=== PATIENT | male | born 1935 | race Caucasian/White ===

== ENCOUNTER 2017-10-07 18:09 | Inpatient (IN) ==
[2017-10-07] MEDS ORDERED: SALINE FLUSH 10ml SYRINGE IVF PRN (18:38)
--- NOTE | 2017-10-07 18:40 | Emergency Department Report ---
General Adult HPI - General Chief complaint: Weakness Stated complaint: Fall-weakness Time Seen by Provider: 10/07/17 18:37 Source: patient Mode of arrival: EMS Limitations: no limitations - History of Present Illness HPI narrative: 2-year-old male presents to the emergency department with the chief complaint of subjective fever and generalized weakness. He noted onset of symptoms at home prior to arrival to the emergency department. Patient states that he was feeling weak so he sat down to avoid falling down and sat down on his buttocks. He denies striking his head, neck pain, or loss of consciousness. He denies any current pain or discomfort. He does use 3 L by nasal cannula at all times. No other complaints or associated symptoms. He was at home when his symptoms began. Symptoms have been persistent in nature since onset. - Related Data Home Medications Medication Instructions Recorded Confirmed Rosuvastatin [Crestor] 10 mg PO HS #0 11/13/09 10/07/17 Folic Acid 4 mcg PO DAILY #0 06/05/12 10/07/17 Niacin 500 mg PO DAILY #0 06/05/12 10/07/17 Amlodipine [Norvasc] 10 mg PO BID 06/28/17 10/07/17 Cholecalciferol (Vitamin D3) 1,000 unit PO DAILY 06/28/17 10/07/17 [Vitamin D3] Furosemide [Lasix 40 mg Tab] 40 mg PO DAILY 06/28/17 10/07/17 Levothyroxine Tab [Synthroid] 25 mcg PO ACB 06/28/17 10/07/17 Multivitamin [One Daily] 1 each PO DAILY 06/28/17 10/07/17 Potassium Chloride [K-DUR 20 mEq 20 meq PO HS 06/28/17 10/07/17 Tablet] Propafenone [Rythmol] 150 mg PO TID 06/28/17 10/07/17 Ubidecarenone/Vit E Acet [Co Q-10 1 each PO DAILY 06/28/17 10/07/17 100 mg Softgel] Vitamin B Complex [Balanced B-100] 1 each PO DAILY 06/28/17 10/07/17 Claritin (Loratadine) 10 mg tablet 10 mg PO DAILY 08/01/17 10/07/17 aspirin 81 mg tablet,delayed 81 mg PO DAILY tab 02/09/18 04/17/18 release magnesium 250 mg tablet 250 mg PO DAILY 08/01/17 10/07/17 omega 3,6,9 combination no.7 92 mg 80 mg PO DAILY tab 08/01/17 10/07/17 (43 mg-22 [id number]) chew tablet Albuterol Neb (0.5%) [Proventil 2.5 mg AEROSOL PRN PRN 08/11/17 10/07/17 Neb (0.5%)] Citalopram Hydrobromide [Celexa] 20 mg PO HS 08/11/17 10/07/17 DiltiaZEM CD [Cardizem CD 180 MG] 180 mg PO DAILY 08/11/17 10/07/17 LORazepam [Ativan] 1 tab PO HS 08/11/17 10/07/17 Allergies Allergy/AdvReac Type Severity Reaction Status Date / Time OLGA Inhibitors Allergy Severe SWELLING Verified 08/11/17 08:02 benazepril HCl Allergy Severe TONGUE Uncoded 08/11/17 08:02 SWELLS Review of Systems Constitutional: Reports: fever (subjective), weakness (generalized) Eyes: Denies: eye discharge, vision change ENT: Denies: ear pain, throat pain Cardiovascular: Denies: chest pain, palpitations Respiratory: Denies: cough, dyspnea Gastrointestinal: Denies: abdominal pain, nausea, vomiting, diarrhea Genitourinary: Denies: urgency, dysuria Musculoskeletal: Denies: back pain, arthralgia Integumentary: Denies: erythema, rash Neurological: Denies: headache, numbness, paresthesias Psychiatric: Denies: anxiety, depression Endocrine: Denies: polydipsia, polyuria Hematological/Lymphatic: Denies: easy bruising, lymphadenopathy Allergic/Immunologic: Denies: facial swelling, urticaria PFSH Patient Stated Medical History Cardiac Arrhythmia Yes: Afib,PLAVIX,LOVENOX Congestive Heart Failure Yes Coronary Artery Disease Yes Hypertension Yes Sleep Apnea Yes: uses cpap Clinic Medical History (Last Updated 08/05/17 @ 15:10 by Lyndon Mix MD) Hypothyroidism (Chronic Medical) Non-Hodgkin lymphoma (Chronic Medical ~2011) Oncologist: Dr. 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 Blackwell at [facility] in [place], [place]. * Stent Placement x 2 - 04/[address] Blackwell at [facility] in [place], [place]. * Laparoscopic cholecystectomy - 11/13/[address] Art at [facility] in [place], [place]. * [address] Cardiac bypass - [address] Fabien Mena in [place], [place]. * Colonoscopy ~[address] Perry in [place], [place]. Family History: Family History (Last Updated 08/01/17 @ 13:16 by Dom Hurley) Father , at 76 Arthritis Heart attack Mother , at 92 Arthritis High blood pressure Brother Parkinsons disease - Social History Smoking status: Never smoker second hand exposure: No Substance use type: does not use Alcohol intake frequency: does not drink Household members: spouse Current occupational status: retired Does patient use chewing tobacco?: No Physical Exam - Limitations Limitations: no limitations - General General appearance: alert, in no apparent distress - Normal Exams: Head:: Normocephalic without trauma Eyes:: Pupils are PERRLA w/ EOMI, No scleral icterus, irritation, or foreign bodies noted ENMT:: No facial trauma, nasal exudates, pharyngeal erythema, or exudates are noted Dental: No fractured, loose, or missing teeth noted Neck:: Full range of motion, without adenopathy, JVD, bruits or thyromegaly Chest/Respirations:: Clear all green, with good airflow, and symmetry bilaterally Cardiovascular:: Regular rate and rhythm, without murmur or gallop, Pulses 2+ all extremities, capillary refill, <2 seconds all extremities Abdomen:: Bowel sounds positive, soft, non-tender, non-distended, no hepatosplenomegaly, masses or bruits noted Lymphatic:: No lymphadenopathy, or lymphedema noted Musculoskeletal:: No tenderness, or deformity noted, good range of motion, all extremities Integumentary:: No rashes, hives, or bruising noted, hair and nails, without abnormality Neurological:: Patient is alert, and oriented, cranial nerves, motor/sensory/ cerebellar, exams w/o gross deficits, to observation Psychiatric:: Patient exhibits, appropriate attention, emotion and affect Course Vital Signs Temperature 100.8 F H 10/07/17 18:12 Pulse Rate 98 10/07/17 18:12 Respiratory Rate 26 H 10/07/17 18:12 Blood Pressure 111/54 10/07/17 18:12 Pulse Oximetry 87 L 10/07/17 18:12 Temperature 100.8 F H 10/07/17 18:12 Pulse Rate 92 10/07/17 20:30 Respiratory Rate 26 H 10/07/17 18:12 Blood Pressure 131/63 10/07/17 20:30 Pulse Oximetry 94 10/07/17 20:30 Medical Decision Making - MDM Narrative Medical decision making narrative: Labs / imaging was discussed in detail with the patient and questions are answered. Patient is given 1 g of acetaminophen by mouth 1. He is given 1 g of cefepime intravenously after blood cultures were obtained. He is given 500 mL of normal saline intravenously at a slow rate. Patient is discussed with the hospitalist Dr. Álvarez who is in agreement with the current plan of management. Patient will be admitted to the service of the hospitalist in improved condition for further evaluation and treatment due to the fact that the patient is currently active on chemotherapy for lymphoma. I have no current source of infection for a sepsis diagnosis at this time. Cefepime 1 g was given intravenously at 2130 and sepsis was considered. He was never hypotensive in the emergency department and his lactate was less than 4. - Differential Diagnosis PNA, UTI, Metabolic disorder, Viral syndorme - Lab Data Result diagrams: 10/07/17 18:57 10/07/17 18:57 Lab Results 10/07/17 10/07/17 10/07/17 Range/Units 18:49 18:57 18:57 WBC 18.5 H (4.5-11.0) T/MM3 RBC 3.54 L (4.50-5.90) M/MM3 Hgb 10.1 L (13.5-17.5) GM/DL Hct 31.5 L (41-53) % MCV 89.0 (80-100) UM3 MCH 28.5 (26-34) UUG MCHC 32.1 (31-37) GM/DL RDW Std Deviation 53.5 H (36.9-50.2) FL Plt Count 154 (130-400) T/MM3 MPV 11.0 (9.4-12.4) UM3 Immature Gran % (Auto) Not performed Neut % (Auto) Not performed Lymph % (Auto) Not performed [place] % (Auto) Not performed Eos % (Auto) Not performed Baso % (Auto) Not performed Neut # (Auto) Not performed Lymph # (Auto) Not performed [place] # (Auto) Not performed Eos # (Auto) Not performed Baso # (Auto) Not performed Abs Immat Gran (auto) Not performed Neutrophils % (Manual) 91.0 H (33-66) % Band Neutrophils % 7.0 H (0-6) % Lymphocytes % (Manual) 1.0 L (23-45) % Monocytes % (Manual) 1.0 (0-9.0) % Neutrophils # (Manual) 16.8 H (1.8-7.7) T/MM3 Band Neutrophils # 1.3 T/MM3 Lymphocytes # (Manual) 0.2 L (1-4.8) T/MM3 Monocytes # (Manual) 0.2 (0-0.8) T/MM3 Poikilocytosis 1+ Anisocytosis 1+ Ovalocytes 1+ RBC Morph Comment Abnormal INR (0.92-1.18) Turbidity < 20 (0-20) Sodium 137 (134-144) MEQ/L Potassium 3.7 (3.6-5) MEQ/L Chloride 98 (98-107) MEQ/L Carbon Dioxide 30 (22-30) MEQ/L Anion Gap 9 (5-15) meq/L BUN 22.0 H (9-20) MG/DL Creatinine 0.7 L (0.8-1.5) mg/dL GFR Calculation 107 BUN/Creatinine Ratio 31 H (6-26) RATIO Glucose 94 (75-110) MG/DL Calculated Osmolality 267 (261-280) MOSM/KG Calcium 8.2 L (8.4-10.2) MG/DL Total Bilirubin 0.60 (0.20-1.30) MG/DL Icterus Index < 2 (0-7) AST 16 L (17-59) U/L ALT 46 (1-50) U/L Alkaline Phosphatase 80 (38-126) U/L Troponin I < 0.012 (0-0.12) ng/ml NT-Pro-B Natriuret Pep 1360 H (0-175) pg/mL Total Protein 5.1 L (6.3-8.2) g/dL Albumin 3.1 L (3.5-5.0) g/dL Globulin 2.0 L (2.4-3.6) G/DL Albumin/Globulin Ratio 1.6 (1.1-2.2) RATIO Plasma Lactate 2.0 (0.6-2.2) MMOL/L Procalcitonin NG/ML Specimen Hemolysis < 15 (0-25) Ur Collection Type Urine Color (YELLOW) Urine Clarity Urine pH (5.0-8.0) Ur Specific [place] (1.015-1.025) Urine Protein (NEGATIVE) Urine Glucose (UA) (NEGATIVE) Urine Ketones (NEGATIVE) Urine Occult Blood (NEGATIVE) Urine Nitrate (NEGATIVE) Urine Bilirubin (NEGATIVE) Urine Urobilinogen (NORMAL) EU/DL Ur Leukocyte Esterase (NEGATIVE) Urinalysis Comment 10/07/17 10/07/17 10/07/17 Range/Units 18:57 19:06 20:53 WBC (4.5-11.0) T/MM3 RBC (4.50-5.90) M/MM3 Hgb (13.5-17.5) GM/DL Hct (41-53) % MCV (80-100) UM3 MCH (26-34) UUG MCHC (31-37) GM/DL RDW Std Deviation (36.9-50.2) FL Plt Count (130-400) T/MM3 MPV (9.4-12.4) UM3 Immature Gran % (Auto) Neut % (Auto) Lymph % (Auto) [place] % (Auto) Eos % (Auto) Baso % (Auto) Neut # (Auto) Lymph # (Auto) [place] # (Auto) Eos # (Auto) Baso # (Auto) Abs Immat Gran (auto) Neutrophils % (Manual) (33-66) % Band Neutrophils % (0-6) % Lymphocytes % (Manual) (23-45) % Monocytes % (Manual) (0-9.0) % Neutrophils # (Manual) (1.8-7.7) T/MM3 Band Neutrophils # T/MM3 Lymphocytes # (Manual) (1-4.8) T/MM3 Monocytes # (Manual) (0-0.8) T/MM3 Poikilocytosis Anisocytosis Ovalocytes RBC Morph Comment INR 4.21 H (0.92-1.18) Turbidity (0-20) Sodium (134-144) MEQ/L Potassium (3.6-5) MEQ/L Chloride (98-107) MEQ/L Carbon Dioxide (22-30) MEQ/L Anion Gap (5-15) meq/L BUN (9-20) MG/DL Creatinine (0.8-1.5) mg/dL GFR Calculation BUN/Creatinine Ratio (6-26) RATIO Glucose (75-110) MG/DL Calculated Osmolality (261-280) MOSM/KG Calcium (8.4-10.2) MG/DL Total Bilirubin (0.20-1.30) MG/DL Icterus Index (0-7) AST (17-59) U/L ALT (1-50) U/L Alkaline Phosphatase (38-126) U/L Troponin I (0-0.12) ng/ml NT-Pro-B Natriuret Pep (0-175) pg/mL Total Protein (6.3-8.2) g/dL Albumin (3.5-5.0) g/dL Globulin (2.4-3.6) G/DL Albumin/Globulin Ratio (1.1-2.2) RATIO Plasma Lactate (0.6-2.2) MMOL/L Procalcitonin 0.15 NG/ML Specimen Hemolysis (0-25) Ur Collection Type Urine, void-cc/notcc Urine Color Yellow (YELLOW) Urine Clarity Clear Urine pH 5.5 (5.0-8.0) Ur Specific [place] 1.015 (1.015-1.025) Urine Protein Negative (NEGATIVE) Urine Glucose (UA) Negative (NEGATIVE) Urine Ketones Negative (NEGATIVE) Urine Occult Blood Negative (NEGATIVE) Urine Nitrate Negative (NEGATIVE) Urine Bilirubin Negative (NEGATIVE) Urine Urobilinogen 2.0 (NORMAL) EU/DL Ur Leukocyte Esterase Negative (NEGATIVE) Urinalysis Comment Microscopic not ind. - EKG Data EKG #1 EKG results narrative: Sinus rhythm. 93 bpm. No STEMI. Similar to 05/14/17. Disposition Clinical Impression: Febrile illness, Pleural effusion Disposition: 02 To [facility] Condition: Improved Time of Disposition: 21:00 (Admit. Dr. Álvarez. ) - Seen By: physician
[2017-10-07] MEDS ORDERED: CEFEPIME 1 GM in NS 100 ML IV SCH (21:30)
[2017-10-07] MEDS: ACETAMINOPHEN 500 MG TABLET PO SCH (21:38)
[2017-10-07 23:17] VITALS: BMI 39.4
--- NOTE | 2017-10-07 23:46 | History & Physical Report ---
History of Present Illness Date: 10/07/17 Chief complaint: weakness HPI: 82 yo M with PMH of lymphoma, on chemo with last treatment last week, presented to the ED with reports of generalized weakness and fevers. He reports being very tired today and that he had to sit down multiple times today due to weakness. He reports not feeling well yesterday and today and that he thinks he over did it. He reports he was feeling better after his chemo until yesterday. He was found to be hypoxic in the ED with a fever and CXR showed a left pleural effusion. Patient admitted for IV ABX and supportive care. Review of Systems All systems PM: 10-point ROS was reviewed, no additional remarkable complaints except Past Medical History Medical History: Medical History (Last Updated 08/05/17 @ 15:10 by Lyndon Mix MD) Hypothyroidism (Chronic) Non-Hodgkin lymphoma (Chronic) Onset Date: ~2011 Oncologist: Dr. 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 Blackwell at [facility] in [place], [place]. * Stent Placement x 2 - 04/[address] Blackwell at [facility] in [place], [place]. * Laparoscopic cholecystectomy - 11/13/[address] Art at [facility] in [place], [place]. * [address] Cardiac bypass - [address] Fabien Mena in [place], [place]. * Colonoscopy ~[address] Perry in [place], [place]. Family History: Family History (Last Updated 08/01/17 @ 13:16 by Dom Hurley) Father , at 76 Arthritis Heart attack Mother , at 92 Arthritis High blood pressure Brother Parkinsons disease Family History: As Above - Social History Smoking status: Never smoker Medications Home Medications Medication Instructions Recorded Confirmed Type Rosuvastatin [Crestor] 10 mg PO HS #0 11/13/09 10/07/17 History Folic Acid 4 mcg PO DAILY #0 06/05/12 10/07/17 History Niacin 500 mg PO DAILY #0 06/05/12 10/07/17 History Amlodipine [Norvasc] 10 mg PO BID 06/28/17 10/07/17 History Cholecalciferol (Vitamin D3) 1,000 unit PO DAILY 06/28/17 10/07/17 History [Vitamin D3] Furosemide [Lasix 40 mg Tab] 40 mg PO DAILY 06/28/17 10/07/17 History Levothyroxine Tab [Synthroid] 25 mcg PO ACB 06/28/17 10/07/17 History Multivitamin [One Daily] 1 each PO DAILY 06/28/17 10/07/17 History Potassium Chloride [K-DUR 20 mEq 20 meq PO HS 06/28/17 10/07/17 History Tablet] Propafenone [Rythmol] 150 mg PO TID 06/28/17 10/07/17 History Ubidecarenone/Vit E Acet [Co Q-10 1 each PO DAILY 06/28/17 10/07/17 History 100 mg Softgel] Vitamin B Complex [Balanced B-100] 1 each PO DAILY 06/28/17 10/07/17 History Claritin (Loratadine) 10 mg tablet 10 mg PO DAILY 08/01/17 10/07/17 History aspirin 81 mg tablet,delayed 81 mg PO DAILY tab 08/01/17 10/07/17 History release magnesium 250 mg tablet 250 mg PO DAILY 08/01/17 10/07/17 History omega 3,6,9 combination no.7 92 mg 80 mg PO DAILY tab 08/01/17 10/07/17 History (43 mg-22 [id number]) chew tablet Albuterol Neb (0.5%) [Proventil 2.5 mg AEROSOL PRN PRN 08/11/17 10/07/17 History Neb (0.5%)] Citalopram Hydrobromide [Celexa] 20 mg PO HS 08/11/17 10/07/17 History DiltiaZEM CD [Cardizem CD 180 MG] 180 mg PO DAILY 08/11/17 10/07/17 History LORazepam [Ativan] 1 tab PO HS 08/11/17 10/07/17 History Allergies Allergy/AdvReac Type Severity Reaction Status Date / Time OLGA Inhibitors Allergy Severe SWELLING Verified 08/11/17 08:02 benazepril HCl Allergy Severe TONGUE Uncoded 08/11/17 08:02 SWELLS Exam Vital Signs: Temperature 98.3 F 04/17/18 23:08 Pulse Rate 91 10/07/17 23:08 Respiratory Rate 24 10/07/17 23:08 Blood Pressure 125/67 10/07/17 23:08 Pulse Oximetry 95 10/07/17 23:08 Height/Weight/BMI: Height 1.7 m Weight 114.4 kg Body Mass Index 39.4 - Constitutional Present: well nourished, well developed - Routine Respiratory Exam Present: decreased breath sounds (in bases B/L) - Routine Cardiovascular Exam Present: RRR. Absent: murmur - Routine Abdominal Exam Present: soft, normoactive bowel sounds, non distended. Absent: tenderness - Routine Extremities Exam Present: normal capillary refill - Routine Skin Exam Present: dry, warm - Routine Neurological Exam Present: alert, oriented X3, CN II-XII intact Results - Labs CBC & Chem 7: 10/07/17 18:57 10/07/17 18:57 Assessment and Plan (1) Pneumonia Current visit: Yes Status: Acute (2) Pleural effusion Current visit: Yes Status: Acute (3) Non-Hodgkin lymphoma Problem details: Oncologist: Dr. Kevan Delaney Current visit: No Status: Chronic Assessment and Plan: Patient admitted, given cefepime and started on supplemental oxygen. He reports he wears oxygen with his CPAP at home, but not during the day. Will attempt to titrate down during his stay. His Oncologist is in [place]. Continue supportive care. DVT Prophylaxis: SCD's Resuscitation Status: Full Code - Physician Narrative Narrative: Date: 10/07/17 Time: 2341 Hospital Course Summary Disclaimer: The visit summary below is not to be considered part of the above Progress Note.
[2017-10-07] MEDS: NS 1,000 ML IV SCH (23:52)
[2017-10-08] MEDS: PROPAFENONE 150 MG TABLET PO SCH ×4 (00:54→21:40)
[2017-10-08] MEDS: CEFEPIME 1 GM in NS 100 ML IV SCH ×3 (05:26→21:53)
[2017-10-08] MEDS: ALBUTEROL 2.5mg/3ml (0.083%) NEB AEROSOL SCH ×2 (07:32→11:15)
--- NOTE | 2017-10-08 07:54 | XRay Report ---
Indication: generalized weakness PROCEDURE: XR chest 1V: Encounter: Initial Comparison: May 12, 2017 Findings: Small left pleural effusion with compressive atelectasis. Right lung is grossly clear. No pneumothorax. Heart size and mediastinal contours are stable. Right IJ port catheter. Degenerative changes in the spine and right shoulder. Impression: Small left pleural effusion. Underlying pneumonia or aspiration cannot be excluded in the left base. .
[2017-10-08] MEDS: NS 1,000 ML IV SCH (11:05)
[2017-10-08] MEDS ORDERED: WARFARIN - PHARMACY CONSULT MC ONE (13:44)
[2017-10-08] MEDS: MAGNESIUM OXIDE 400 MG TABLET PO SCH (14:07)
[2017-10-08] MEDS: COENZYME Q-10 200mg TABLET PO SCH (14:20)
[2017-10-08] MEDS: ASPIRIN *EC* 81 MG TABLET PO SCH (14:20)
[2017-10-08] MEDS: FOLIC ACID 1 MG TABLET PO SCH (14:23)
[2017-10-08] MEDS: LORATADINE 10 MG TABLET PO SCH (14:23)
[2017-10-08] MEDS: VITAMIN B COMPLEX + C TABLET PO SCH (14:23)
[2017-10-08] MEDS: MULTI-VITAMIN + MINERAL TABLET PO SCH (14:24)
[2017-10-08] MEDS: OMEGA-3 ACID ESTERS 1 GM CAPSULE PO SCH (14:24)
[2017-10-08] MEDS: ALBUTEROL/IPRATROPIUM 2.5mg-0.5mg/3ml NEB AEROSOL SCH ×2 (14:47→19:07)
--- NOTE | 2017-10-08 15:34 | Pharmacy Consult ---
Pharmacy Consult-Warfarin - Consult Information 82 y.o. Male admitted with supratherapeutic INR of 4.21. Nursing contacted and reports no signs of bleeding. Today's INR is supratherapeutic. No Warfarin dose today. Pharmacy will monitor and dose. Thank you, Neisha Fay [facility]
[2017-10-08] MEDS ORDERED: FUROSEMIDE 40 MG/4 ML INJECTION IVP ONE (18:37)
[2017-10-08] MEDS ORDERED: NIACIN ER 500 MG TABLET PO SCH (21:00)
[2017-10-08] MEDS ORDERED: LORazepam 1 MG TABLET PO SCH (21:00)
[2017-10-08] MEDS ORDERED: CITALOPRAM 20 MG TABLET PO SCH (21:00)
[2017-10-08] MEDS ORDERED: ROSUVASTATIN 10 MG TABLET PO SCH (21:00)
[2017-10-08] MEDS: ACETAMINOPHEN 500 MG TABLET PO SCH (21:44)
[2017-10-09] MEDS: CEFEPIME 1 GM in NS 100 ML IV SCH ×2 (06:11→13:54)
[2017-10-09] MEDS ORDERED: LEVOTHYROXINE 25 MCG TABLET PO SCH (06:30)
--- NOTE | 2017-10-09 07:27 | Pharmacy Consult ---
Pharmacy Consult-Warfarin - Laboratory Information 10/09/17 04:29 INR 2.23 H - Consult Information INR in target range today. Warfarin 4mg po is ordered for today. Thank you.
--- NOTE | 2017-10-09 08:48 | XRay Report ---
INDICATION: PNA/HF PROCEDURE: CHEST 2-VIEWS UPRIGHT (PA & LAT) Encounter: Initial COMPARISON: October 07, 2017 FINDINGS: Stable left pleural effusion. Mild interstitial prominence. No pneumothorax. Heart size and mediastinal contours are stable. Impression: Stable left effusion. Mild edema. .
[2017-10-09] MEDS: VITAMIN B COMPLEX + C TABLET PO SCH (09:01)
[2017-10-09] MEDS: ASPIRIN *EC* 81 MG TABLET PO SCH (09:01)
[2017-10-09] MEDS: COENZYME Q-10 200mg TABLET PO SCH (09:02)
[2017-10-09] MEDS: MULTI-VITAMIN + MINERAL TABLET PO SCH (09:02)
[2017-10-09] MEDS: PROPAFENONE 150 MG TABLET PO SCH ×2 (09:02→16:00)
[2017-10-09] MEDS: OMEGA-3 ACID ESTERS 1 GM CAPSULE PO SCH (09:03)
[2017-10-09] MEDS: MAGNESIUM OXIDE 400 MG TABLET PO SCH (09:03)
[2017-10-09] MEDS: LORATADINE 10 MG TABLET PO SCH (09:03)
[2017-10-09] MEDS: FOLIC ACID 1 MG TABLET PO SCH (09:03)
[2017-10-09] MEDS: ALBUTEROL/IPRATROPIUM 2.5mg-0.5mg/3ml NEB AEROSOL SCH ×3 (09:35→16:29)
[2017-10-09] MEDS ORDERED: FUROSEMIDE 40 MG TABLET PO SCH (11:30)
--- NOTE | 2017-10-09 11:36 | Progress Note ---
- Date 10/09/17 Subjective: 82y/o male pt who he was feeling fine initially on the day of admission and went to the store. He walked around the store without any problems. Toward the end of his browsing he felt weak and his knees gave out. He sat down on some feed bags and then sliped to the floor. Store employees were unable to help him get up and EMS was called. He was taken to the ER. In the ER he was found to have leukocytosis with possible pneumonia. He was mildly hypoxic. He was given cefepime. He was subsequently admitted with the presumptive diagnosis of left lower lobe pneumonia. He denies feeling lightheaded or dizzy. He has not been febrile lately to his knowledge however he did have a temperature of 100.8 in the emergency room. His O2 sat on room air was 87%. He denies cough or sputum production. He denies feeling short of breath. He is on a CPAP at night with oxygen at 3 L. He does not typically use oxygen during the day. He does have a diagnosis of restrictive airway disease as well as obstructive sleep apnea. He also has systolic and diastolic heart failure with an EF of 45%. The patient denied chest pain, pressure or tightness. He denied palpitations. He does have a diagnosis of atrial fibrillation and has a leaderless pacemaker placed for bradycardia. He has a history of coronary artery disease but denies any recent anginal symptoms. He denies having nausea, vomiting, diarrhea. He was constipated on Friday and took 2 tablets of something and was cleaned out on Friday. He denies a bowel movement since Friday. He denies any black tarry stools or bloody stools. He does have some urinary urgency as well as frequency but no dysuria. He has chronic lower extremity edema and states that it's stable for him as it is today. Today, he reports feeling fine. He denies any cough or sputum production. He denies fever or chills. He has had no CP or palp. No N,V,D,C,H,M. Continues to have edema. CXR shows left effusion. WBC normalized. No fevers. Objective Vital signs: Temperature 99.0 F 10/09/17 07:54 Pulse Rate 85 10/09/17 09:02 Respiratory Rate 20 10/09/17 09:35 Blood Pressure 140/71 H 10/09/17 07:54 Pulse Oximetry 96 10/09/17 09:35 Height/Weight/BMI: Height 1.7 m Weight 112.7 kg Body Mass Index 39.4 Comments: Gen: alert and oriented. NAD Skin: warm and dry HEENT: NC/AT PERRL, EOMI, Sclera, lids and conjunctiva wnl. MMM. OP clear. Neck: Short and thick. No JVD, Carotids 2+ without bruits Lungs: diminished, Few rales on the left. No rhonchi or wheezes CV: regular. No murmur, rub or gallop. Tele: V paced Abd: soft. +BS. NT/ND MS: 2+ edema to the knees bilaterally. Good strength and ROM Neuro: No focal deficits Psy: Appropriate mood and affect Results - Labs CBC & Chem 7: 10/09/17 04:29 10/09/17 04:29 Assessment and Plan (1) Non-Hodgkin lymphoma Problem details: Oncologist: Dr. Kevan Delaney Current visit: No Status: Chronic (2) Pleural effusion Current visit: Yes Status: Acute (3) Pneumonia Current visit: Yes Status: Acute Assessment and Plan: Assessment and plan: 1. Leukocytosis-resolved -possible pneumonia-No mention on todays CXR, no cough or sputum -Home on levaquin po for 10 days -no evidence of UTI 2. Possible pneumonia -Home on levaquin for 10 days -continue respiratory therapy -PRN oxygen 3. Atrial fibrillation status post pacemaker -telemetry -continue warfarin 4. Supra therapeutic INR -Decrease dosing and frequent checks with follow due to antibiotic use. 5. Weakness -Walking in halls without issues at present 6. Coronary artery disease -patient on aspirin -no anginal complaints 7. Diastolic and systolic heart failure -appears fairly compensated at this point -will stop amlodipine dose and add low-dose Coreg -unable to do marita inhibitors due to angioedema -Resume lasix 8. Hypertension -will stop amlodipine, add Coreg at low dose and continue diltiazem 9. Hyperlipidemia -will continue Statin 10. Hypothyroidism -continue supplement 11. Obstructive sleep apnea -CPAP at night with oxygen 12. Restrictive lung disease -respiratory therapy 13. Lower extremity edema -likely due to his diastolic heart failure -recommend [place] hose and leg elevation -resume diuretics 14. Lymphoma -last chemotherapy 1 week ago -labs are stable, will follow 15. Anemia -likely multifactorial -will check iron stores 16. Prophylaxis -patient on warfarin, will add PPI Possibly home today if walking this afternoon without difficulty and no fevers. Will go home on Levaquin for 10 days. He will need close follow up with PCP, dentist (for his tooth ache) and cardiology as well as INR monitoring. Patient walked in the halls without assist except for his walker. Patient is going to go home today with close follow-up as an outpatient. - Physician Narrative Narrative: Date: 10/09/17 Time: 1129 Hospital Course Summary Disclaimer: The visit summary below is not to be considered part of the above Progress Note.
[2017-10-09 11:39] VITALS: RESP 16
[2017-10-09] MEDS ORDERED: WARFARIN 4 MG TABLET PO SCH (12:00)
[2017-10-09 15:14] VITALS: BP 135/70; TEMP 97.3
--- NOTE | 2017-10-09 16:15 | Discharge Summary ---
Discharge Information Date of admission: 10/07/17 21:41 Anticipated date of discharge: 10/09/17 Attending Physician: Destiny Jules MD Primary care physician: Anup Maciel MD Consults: None - Discharge Diagnosis (1) Non-Hodgkin lymphoma Status: Chronic (2) Pleural effusion Status: Acute (3) Pneumonia Status: Acute Weakness s/p fall Leukocytosis-resolved Possible pneumonia Hypoxia Atrial fibrillation status post pacemaker Supra therapeutic INR Coronary artery disease Diastolic and systolic heart failure Hypertension Hyperlipidemia Hypothyroidism Obstructive sleep apnea Restrictive lung disease Lower extremity edema Lymphoma Anemia - Procedures Procedures: None - Laboratory Labs: 10/09/17 04:29 10/09/17 04:29 - Radiology Radiology: Date of Exam: 10/09/17 Ordering Provider: Destiny Jules MD Type of Exam(s): XR chest 2V Reason for Exam(s): PNA/HF INDICATION: PNA/HF PROCEDURE: CHEST 2-VIEWS UPRIGHT (PA & LAT) Encounter: Initial COMPARISON: October 07, 2017 FINDINGS: Stable left pleural effusion. Mild interstitial prominence. No pneumothorax. Heart size and mediastinal contours are stable. Impression: Stable left effusion. Mild edema. History of Present Illness HPI: 82 yo M with PMH of lymphoma, on chemo with last treatment last week, presented to the ED with reports of generalized weakness and fevers. He tells me he was feeling fine yesterday and went to the store. He walked around the store without any problems. Toward the end of his browsing he felt weak and his knees gave out. He sat down on some feed and then slips to the floor. Store employees were unable to help him get up and EMS was call. He was taken to the ER. In the ER he was found to have leukocytosis with possible pneumonia. He was mildly hypoxic. He was given cefepime. He was subsequently admitted with the presumptive diagnosis of left lower lobe pneumonia. He denies feeling lightheaded or dizzy. He has not been febrile lately to his knowledge however he did have a temperature of 100.8 in the emergency room. His O2 sat on room air was 87%. He denies cough or sputum production. He denies feeling short of breath. He is on a CPAP at night with oxygen at 3 L. He does not typically use oxygen during the day. He does have a diagnosis of restrictive airway disease as well as obstructive sleep apnea. He also has systolic and diastolic heart failure with an EF of 45%. The patient denied chest pain, pressure or tightness. He denied palpitations. He does have a diagnosis of atrial fibrillation and has a leaderless pacemaker placed for bradycardia. He has a history of coronary artery disease but denies any recent anginal symptoms. He denies having nausea, vomiting, diarrhea. He was constipated on Friday and took 2 tablets of something and was cleaned out on Friday. He denies a bowel movement since Friday. He denies any black tarry stools or bloody stools. He does have some urinary urgency as well as frequency but no dysuria. He has chronic lower extremity edema and states that it's stable for him as it is today. Objective Vital signs: Temperature 97.3 F 10/09/17 15:13 Pulse Rate 96 10/09/17 15:13 Respiratory Rate 16 10/09/17 15:13 Blood Pressure 135/70 10/09/17 15:13 Pulse Oximetry 95 10/09/17 15:13 Height/Weight/BMI: Height 1.7 m Weight 112.7 kg Body Mass Index 39.4 Comments: Gen: alert and oriented. NAD Skin: warm and dry HEENT: NC/AT PERRL, EOMI, Sclera, lids and conjunctiva wnl. MMM. OP clear. Neck: Short and thick. No JVD, Carotids 2+ without bruits Lungs: diminished, Few rales. No rhonchi or wheezes CV: regular. No murmur, rub or gallop Abd: soft. +BS. NT/ND MS: 2-3+ edema to the knees bilaterally. Good strength and ROM Neuro: No focal deficits Psy: Appropriate mood and affect Hospital Course Mr. Sanchez was admitted after having a cute onset weakness that caused him to go to the floor. He actually sat down on some feed bags in the store then slid to the floor. He was unable to get himself up. He presented to the emergency room was found have leukocytosis. He also was febrile. In addition he was felt that he had possible pneumonia. He was placed on cefepime with resolution of the leukocytosis and fevers. He was up and ambulating without difficulty using a walker with no subsequent weakness noted. He was using oxygen during the day as well. He has this availability at home already and I suggested he start using it. He denied any sputum production he denied cough. His fevers resolved. I spoke with his oncologist Dr. feliciano today he stated that he did get Neulasta last week and that could be the reason his white blood count was up however it does not usually cause fevers. Nonetheless we will send him home to complete a course of antibiotics. I do think he had a component of hypoxia so I have encouraged him to use his monitor that he has at home to measure his oxygen saturations and to use oxygen during the day as well as the night time with his CPAP. He did present with a mildly elevated INR so his Coumadin was held the next day after admission and then resumed at only 4 mg daily starting today. He will need close follow-up with his INR's as long as he is on the antibiotics and again when he is off antibiotics to make sure that it's remaining therapeutic. I did also adjust his medications in part because he has such profound lower extremity edema and he was on a high dose of Norvasc in addition to the Cardizem. I opted to get him off the the Norvasc and started him on low- dose Coreg. 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 He is unable to be treated with an marita inhibitor due to a history of angioedema. His heart rates here were fine. Mostly he is the pacing. Blood pressures were well controlled throughout his stay. He required about 3 L chronically. He was felt to be stable for discharge with close follow-up. Time spent with patient: 25 - 35 minutes Resuscitation Status: Full Code Discharge Plan - Discharge Disposition Disposition: Discharged Home, Self-Care *Condition: Improved Reason For Visit (Visit label in EMR): FEVER - Discharge Medications *Discharge Medications: New Carvedilol [Coreg] 3.125 mg PO BIDWM #60 tab levoFLOXacin [Levaquin] 750 mg PO ACB #10 tab Warfarin [Coumadin] 4 mg PO 1700 #30 tab Acetaminophen [Tylenol] 1,000 mg PO O tablet Continue Niacin 500 mg PO DAILY #0 Folic Acid 4 mcg PO DAILY #0 Furosemide [Lasix 40 mg Tab] 40 mg PO DAILY Vitamin B Complex [Balanced B-100] 1 each PO DAILY Levothyroxine Tab [Synthroid] 25 mcg PO ACB Ubidecarenone/Vit E Acet [Co Q-10 100 mg Softgel] 1 each PO DAILY Potassium Chloride [K-DUR 20 mEq Tablet] 20 meq PO HS Propafenone [Rythmol] 150 mg PO TID Cholecalciferol (Vitamin D3) [Vitamin D3] 1,000 unit PO DAILY Albuterol Neb (0.5%) [Proventil Neb (0.5%)] 2.5 mg AEROSOL PRN PRN PRN Reason: Shortness Of Air/Wheezing Citalopram Hydrobromide [Celexa] 20 mg PO HS DiltiaZEM CD [Cardizem CD 180 MG] 180 mg PO DAILY LORazepam [Ativan] 1 tab PO HS Rosuvastatin [Crestor] 10 mg PO HS #0 Multivitamin [One Daily] 1 each PO DAILY omega 3,6,9 combination no.7 92 mg (43 mg-22 [id number]) chew tablet 80 mg PO DAILY tab magnesium 250 mg tablet 250 mg PO DAILY aspirin 81 mg tablet,delayed release 81 mg PO DAILY tab Claritin (Loratadine) 10 mg tablet 10 mg PO DAILY Discontinued Amlodipine [Norvasc] 10 mg PO BID - Discharge Packet/Instructions *Diet: Low sodium *Activity: As tolerated. Use walker for stability *Pain Management/Treatment: Tylenol *Wound Care: N/A *Expected Signs/Symptoms: Worsening SOA, cough or sputum *Notify Physician if: fevers, weakness, cough or sputum *During Business Hours Contact: PCP *After Business Hours Contact: MD automation sales manager for PCP *Pending Lab/Results: No Pending Lab (iron studies pending) - Referrals/Follow Up *Referrals/Follow Up: Anup Maciel MD [Primary Care Provider] - 1 Week Kevan Delaney MD [Physician] - (next week as already scheduled) Mary Mayen MD [Physician] - (as directed) - Patient Handouts Patient Handouts: Fever in Adults (GEN) - Dismissal Complete Discharge Instructions are:: Complete Physician Narrative - Narrative Attestation Narrative: Date: 10/09/17 Time: 2098
[2017-10-09 16:31] VITALS: O2SAT 97
[2017-10-09] MEDS ORDERED: CARVEDILOL 3.125 MG TABLET PO SCH (17:30)
[2017-10-09 18:32] VITALS: PULSE 83
[2017-10-10] MEDS ORDERED: PANTOPRAZOLE 40 MG TABLET PO SCH (06:30)
== END 2017-10-09 19:00 | disposition home or self-care (01) | DRG 194 ==
LOC: ED 18:09 → MED 21:41
PROVIDERS: ADMIT Internal Medicine; ATTEND Internal Medicine Cardiovascular Disease